=== PATIENT | female | born 1950 | race Caucasian/White ===

== ENCOUNTER → 2017-03-20 | Outpatient (CLI) | payer MEDICAID ==
--- NOTE | 2017-03-24 20:41 | RADIOLOGY REPORT PS360 ---
DIG MAMM-SCREEN SATISH W/CAD ORDERING PHYSICIAN : VJ YU PATIENT AGE: 66 years GENDER: Female COMPARISON: January 2008, February 2016. December 2010 HISTORY:No hormones. No new complaints. Previous excisional biopsy Right breast 6:00 inferior margin of the nipple. Family history. Paternal aunt and paternal cousin with breast cancer TECHNIQUE: Std CC & MLO images were obtained. R2 CAD reviewed. FINDINGS: Moderate glandular elements scattered in both breast mild/moderate density breast bilaterally with no dominant mass nor suspicious calculation . No architectural distortion. RIGHT BREAST: Minimal density right retroareolar region and superior right breast. LEFT BREAST:. No new findings. Follow-up in one year. IMPRESSION: Stable bilateral mammogram with no new areas of concern. Moderate density breast BI-RADS CATEGORY: 2_Benign RECOMMENDED FOLLOWUP: 12M 12 MONTH FOLLOW-UP (A letter has been sent to the patient regarding results of the study.)
== END ==
LOC: RAD 08:59
DX: Z12.31 Encounter for screening mammogram for malignant neoplasm of breast (principal)
CPT/HCPCS: G0202